=== PATIENT | male | born 1985 | race Caucasian/White ===

== ENCOUNTER 2019-02-22 23:58 | Emergency (ER) | payer SELFPAY ==
[~2019-02-22] VITALS: Ht 167.6 cm; Wt 96.4 kg
[2019-02-23 00:05] VITALS: BP 146/94; Ht 167.6 cm; Wt 96.4 kg
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
[2019-02-23] MEDS ORDERED: ACETAMINOPHEN 325 MG TAB PO ONE (01:00)
[2019-02-23] MEDS ORDERED: IBUPROFEN 200 MG TAB PO ONE (01:00)
[2019-02-23] MEDS ORDERED: ACET325T33 PO (01:16)
[2019-02-23] MEDS ORDERED: IBUP-1561 PO (01:16)
[2019-02-23 02:03] VITALS: PULSE 90; RESP 16
== END 2019-02-23 02:04 | disposition home or self-care (01) ==
LOC: FTE 23:58
DX: S06.0X0A Concussion without loss of consciousness, initial encounter (principal); Y08.89XA Assault by other specified means, initial encounter
CPT/HCPCS: 70450